=== PATIENT | male | born 1950 ===

== ENCOUNTER 2021-03-25 07:23 | Day surgery (SDC) | payer OTHER | END 2021-03-25 11:45 | disposition home or self-care (01) | LOC: AMB-ENDOS 07:23 → CIR.AMB 10:15 → AMB-ENDOS 11:45 | PROVIDERS: ATTEND Colon & Rectal Surgery | DX: D12.3 Benign neoplasm of transverse colon (principal); D12.4 Benign neoplasm of descending colon; K64.8 Other hemorrhoids; Z20.822 Contact with and (suspected) exposure to COVID-19 ==

== ENCOUNTER 2021-10-28 09:14 | Day surgery (SDC) | payer OTHER | END 2021-10-28 18:15 | disposition home or self-care (01) | LOC: AMB-ENDOS 09:14 | PROVIDERS: ATTEND Colon & Rectal Surgery | DX: D12.3 Benign neoplasm of transverse colon (principal); Z20.822 Contact with and (suspected) exposure to COVID-19; Z86.010 Personal history of colon polyps ==